=== PATIENT | female | born 1995 | race Caucasian/White ===

== ENCOUNTER 2019-03-30 13:32 | Emergency (ER) | payer OTHER ==
--- NOTE | 2019-03-30 13:41 | EDPHY ---
H & P Stated Complaint: R THIGH NUMBNESS Time Seen by Provider: 03/30/19 13:41 HPI/ROS: CHIEF COMPLAINT: [ ] HISTORY OF PRESENT ILLNESS: [Need 4: Location, Duration, Severity, Quality, Context, Timing Modifying Factors, Associated S&S] REVIEW OF SYSTEMS: A comprehensive 10 point review of systems is otherwise negative aside from elements mentioned in the history of present illness. Source: Patient Exam Limitations: No limitations - Personal History LMP (Females 10-55): Now Current Tetanus Diphtheria and Acellular Pertussis (TDAP): Yes - Medical/Surgical History Hx Asthma: No Hx Chronic Respiratory Disease: No Hx Diabetes: No Hx Cardiac Disease: No Hx Renal Disease: No Hx Cirrhosis: No Hx Alcoholism: No Hx HIV/AIDS: No Hx Splenectomy or Spleen Trauma: No Other PMH: r kidney stent x10 yr ago - Social History Smoking Status: Never smoked - Physical Exam Exam: General Appearance: [Alert, no distress] Eyes: [Pupils equal and round no pallor or injection] ENT, Mouth: [Mucous membranes moist] Respiratory: [There are no retractions, lungs are clear to auscultation] Cardiovascular: [Regular rate and rhythm] Gastrointestinal: [Abdomen is soft and nontender, no masses, bowel sounds normal] Neurological: [A&O, normal motor function, normal sensory exam, normal cranial nerves] Skin: [Warm and dry, no rashes] Musculoskeletal: [Neck is supple nontender] Extremities: [symmetrical, full range of motion] Psychiatric: [Patient is oriented X 3, there is no agitation] Constitutional: Initial Vital Signs Temperature (C) 37.4 C 03/30/19 13:36 Heart Rate 78 03/30/19 13:36 Respiratory Rate 16 03/30/19 13:36 Blood Pressure 117/74 03/30/19 13:36 O2 Sat (%) 98 03/30/19 13:36 O2 Delivery Mode Room Air Allergies/Adverse Reactions: thyroid CHEMICAL TEST ENGINEER Allergy (Uncoded 03/30/19 13:39) Departure - Departure Referrals: Vero Salas MD [Primary Care Provider] - As per Instructions
[2019-03-30] MEDS ORDERED: NS 1,000 ML IV ONE (13:54)
--- NOTE | 2019-03-30 14:07 | EDPHY ---
HPI/HX/ROS/PE/MDM - Data Points Imaging: Discussed imaging studies w/ accounting systems manager Radiologist, I viewed and interpreted images myself Narrative: CHIEF COMPLAINT: Right leg and arm numbness HPI: The patient is a 23-year-old female with no significant past medical history no known neurologic disease. She reports that yesterday she developed right leg numbness and weakness. She describes a pins and needles like sensation primarily in her right anterior thigh but extending down her leg and involving her foot. She does complain of some low back pain. She also complains of an infected piercing to the anterior right groin region. This morning, the patient noted a similar feeling extending to her right arm. She denies any headache, vision change, neck pain, or recent injury. She states she is on her menstrual period currently and is having some menstrual cramps. REVIEW OF SYSTEMS: Aside from elements discussed in the HPI, a comprehensive 10-point review of systems was reviewed and is negative. PMH: No known past medical history. Family history positive for relative with endocarditis. SOCIAL HISTORY: Single. Student. PHYSICAL EXAM: General:Patient is alert, in no acute distress. ENT:Eyes are normal to inspection. ENT inspection normal. Neck: Normal inspection. Full range of motion. Respiratory:No respiratory distress. Breath sounds normal bilaterally. Cardiovascular: Regular rate and rhythm. Strong peripheral pulses. Normal cap refill. Abdomen:The abdomen is nontender to palpation. There are no peritoneal signs. There are normal bowel sounds. Back: Normal to inspection. No tenderness to palpation. Skin: Normal color. No rash. Warm and dry. A metal piercing is located near the right groin that appears infected. There is a small amount of discharge with some surrounding mild erythema. Extremities: Normal appearance. Full range of motion. Neuro: Oriented x3. Patient has intact sensation throughout her leg but describes subjective decrease in sensation. Her right leg does appear weak compared to the left with weakening of both dorsiflexion and plantar flexion of her foot which is approximately 3/5. There is no pronator drift. She does have somewhat diminished independent driver strength and strength throughout her entire right arm compared to the left. (Antonio Delarosa) ED Course: I was asked by Dr. Antonio Delarosa to remove patient's body piercings. Four body piercings are noted on the lower abdomen. Each area was anesthetized with 1% lidocaine without epinephrine. The tops of the piercings were unscrewed. The bottoms were identified, the holes were extended with pair of scissors by 2-3 mm and then each of the bases were removed. The wounds were then cleansed, irrigated and sutured shut. Patient tolerated the procedures well. (Edwin Varela) 1510: I assumed care of this patient at shift change pending MRI. 1740: I spoke with Dr. Lala, radiologist, who reports that the patient has a negative MRI. 1750: Reassessed patient and discussed negative imaging findings. I have advised her to follow up with a neurologist regarding the numbness. Return precautions provided; patient is comfortable with this plan. (Pawan Mcelroy) Given onset of leg symptoms last night but arm symptoms today, I consulted Dr. Jo from Neurology regarding whether this patient met [place] Alert criteria and whether we should start with CTAs rather than MRI. He feels, and I agree, that since symptom complex started last night, the patient is likely outside of tPA window and strategy to start with MRI would spare her possible unnecessary radiation. Patient signed out to Dr. Mcelroy at 1500 pending MRI and further evaluation. ( Antonio Delarosa) - Data Points Laboratory Results: Laboratory Results 03/30/19 14:00 03/30/19 14:00 03/30/19 03/30/19 03/30/19 14:00 14:00 14:00 WBC 5.52 10^3/uL 10^3/uL (3.80-9.50) RBC 5.03 10^6/uL 10^6/uL (4.18-5.33) Hgb 15.0 g/dL g/dL (12.6-16.3) Hct 44.5 % % (38.0-47.0) MCV 88.5 fL fL (81.5-99.8) MCH 29.8 pg pg (27.9-34.1) MCHC 33.7 g/dL g/dL (32.4-36.7) RDW 12.4 % % (11.5-15.2) Plt Count 315 10^3/uL 10^3/uL (150-400) MPV 9.5 fL fL (8.7-11.7) Neut % (Auto) 48.3 % % (39.3-74.2) Lymph % (Auto) 39.7 % % (15.0-45.0) [place] % (Auto) 6.2 % % (4.5-13.0) Eos % (Auto) 4.2 % % (0.6-7.6) Baso % (Auto) 1.4 % % (0.3-1.7) Nucleat RBC Rel Count 0.0 % % (0.0-0.2) Absolute Neuts (auto) 2.67 10^3/uL 10^3/uL (1.70-6.50) Absolute Lymphs (auto) 2.19 10^3/uL 10^3/uL (1.00-3.00) Absolute Monos (auto) 0.34 10^3/uL 10^3/uL (0.30-0.80) Absolute Eos (auto) 0.23 10^3/uL 10^3/uL (0.03-0.40) Absolute Basos (auto) 0.08 10^3/uL 10^3/uL (0.02-0.10) Absolute Nucleated RBC 0.00 10^3/uL 10^3/uL (0-0.01) Immature Gran % 0.2 % % (0.0-1.1) Immature Gran # 0.01 10^3/uL 10^3/uL (0.00-0.10) Sodium 140 mEq/L mEq/L (135-145) Potassium 4.3 mEq/L mEq/L (3.5-5.2) Chloride 106 mEq/L mEq/L (97-110) Carbon Dioxide 24 mEq/l mEq/l (22-31) Anion Gap 10 mEq/L mEq/L (6-14) BUN 16 mg/dL mg/dL (7-23) Creatinine 0.9 mg/dL mg/dL (0.6-1.0) Estimated GFR > 60 Glucose 82 mg/dL mg/dL (70-100) Calcium 9.3 mg/dL mg/dL (8.5-10.4) Beta HCG, Qual NEGATIVE Medications Given: Discontinued Medications Sodium Chloride (Ns) 1,000 mls @ 0 mls/hr IV EDNOW ONE; Wide Open PRN Reason: Protocol Stop: 03/30/19 13:55 Last Admin: 03/30/19 14:22 Dose: 1,000 mls General Time Seen by Provider: 03/30/19 13:41 Initial Vital Signs: Initial Vital Signs Temperature (C) 37.4 C 03/30/19 13:36 Heart Rate 78 03/30/19 13:36 Respiratory Rate 16 03/30/19 13:36 Blood Pressure 117/74 03/30/19 13:36 O2 Sat (%) 98 03/30/19 13:36 O2 Delivery Mode Room Air Allergies/Adverse Reactions: No Known Drug Allergies Allergy (Verified 03/30/19 13:43) Home Medications: Medication Instructions Recorded Thyroid 03/30/19 Departure - Departure Disposition: Home, Routine, Self-Care Clinical Impression: Numbness of right thumb, Facial numbness Condition: Good Instructions: Paresthesia (ED) Additional Instructions: 1. Follow-up with your primary care physician or neurologist within 72 hours. 2. Return to the emergency department for headache, nausea, vomiting, numbness, weakness, neck pain, fever or other concerns. Referrals: Vero Salas MD [Primary Care Provider] - As per Instructions Bravo Jo MD [Medical Doctor] - As per Instructions
[2019-03-30 14:15] LABS: PLATELET COUNT 315 10^3/uL (150-400)
[2019-03-30] MEDS ORDERED: GADOBUTROL 10 ML VIAL IVP ONE (17:16)
[2019-03-30 17:56] VITALS: BP 110/70
== END 2019-03-30 17:55 | disposition home or self-care (01) ==
DX: R20.2 Paresthesia of skin (principal)
CPT/HCPCS: A9585